=== PATIENT | female | born 1975 | race Caucasian/White ===

== ENCOUNTER → 2021-08-13 | Outpatient (CLI) | payer OTHER ==
[2021-08-13 08:50] LABS: HEMOGLOBIN 14.3 gm/dl (12.3-15.3); RED BLOOD COUNT 4.67 M/UL (4.00-5.10); WHITE BLOOD COUNT 4.7 K/UL (4.5-11.0)
[2021-08-13 09:30] LABS: BUN/CREATININE RATIO 17 (0-10)
[2021-08-14 07:10] LABS: PROLACTIN 17.9 ng/mL (4.8-23.3); VITAMIN D, 25-HYDROXY 28.6 ng/mL (30.0-100.0)
[2021-08-14 08:14] LABS: FSH 6.2 mIU/mL (.); LUTEINIZING HORMONE(LH) 10.3 mIU/mL (.); SEX HORM BINDING GLOB, SERUM 53.7 nmol/L (24.6-122.0)
== END ==
LOC: LAB 08:11
PROVIDERS: Family Medicine
DX: R10.31 Right lower quadrant pain (principal); M54.31 Sciatica, right side; E78.5 Hyperlipidemia, unspecified; R53.83 Other fatigue; E55.9 Vitamin D deficiency, unspecified
CPT/HCPCS: 36415; 72100; 73502; 80053; 80061; 82672; 83001; 83002; 84100; 84146; 84270; 84402; 84403; 84439; 84443; 85027

== ENCOUNTER → 2021-09-25 | Outpatient (CLI) | payer OTHER | END | disposition home or self-care (01) | LOC: RAD 08:59 | DX: M24.851 Other specific joint derangements of right hip, not elsewhere classified (principal) | CPT/HCPCS: 73722; A9577; Q9967 ==

== ENCOUNTER → 2022-04-28 | Outpatient (CLI) | payer OTHER | LOC: HEART 5 04-14 11:30 | DX: R07.9 Chest pain, unspecified (principal); R01.2 Other cardiac sounds; I08.1 Rheumatic disorders of both mitral and tricuspid valves | CPT/HCPCS: 93306 ==